=== PATIENT | female | born 1975 | race Caucasian/White ===

== ENCOUNTER 2021-07-17 05:38 | Outpatient (CLI) | payer OTHER ==
[~2021-07-17] VITALS: Ht 162.6 cm; Wt 95.9 kg
[~2021-07-17 05:38] MED LIST: ALPR-557 GT; ALPR0.5T72 PO; ATEN-158 PO; ATEN50TA PO; FERR325C PO; FOLI0.4T2 PO; HYDR-34 PO; HYDR118S10 PO; HYOS0.1216 PO; Ibuprofen PO; MELO-195 PO; NITR-65 PO; ONDA-42 SL; PNT40TEC PO; POTA2TAB15 PO; POTA99TA4 PO; PROM12.59 PO; PROM25SU10 PR; SCR1T PO; SMT80CT PO; SUCR1TAB23 PO; TRAM50TA2 PO; VITAMIN B 6 PO
== END 2021-07-21 15:18 | disposition home or self-care (01) ==
LOC: PREOP 05:38
PROVIDERS: ATTEND Surgery
DX: Z01.818 Encounter for other preprocedural examination (principal)

== ENCOUNTER 2021-07-24 08:03 | Day surgery (SDC) | payer BC, OTHER ==
[2021-07-24] VITALS (11 sets, daily range): BP systolic 97–204; BP diastolic 56–133
[~2021-07-24] VITALS: Ht 162.6 cm; Wt 95.9 kg
[2021-07-24] MEDS ORDERED: ceFAZolin 2 GM IV Premixed 50 ML IV ONE (08:45)
[2021-07-24] MEDS ORDERED: LABETALOL HCL 20 MG/4 ML VIAL IV ONE ×2 (08:45→09:00)
[2021-07-24] MEDS ORDERED: LACTATED RINGERS 1,000 ML IV PRN (08:45)
--- NOTE | 2021-07-24 09:06 | Progress Note-Pre Operative ---
Pre-Operative Progress Note H&P Reviewed The H&P was reviewed, patient examined and no changes noted. Date Seen by Provider: Jul 24, 2021 Time Seen by Provider: 09:05 Date H&P Reviewed: Jul 24, 2021 Time H&P Reviewed: 09:05 Pre-Operative Diagnosis: basal cell right shoulder EVARISTO HARTMAN DO Jul 24, 2021 09:06
[2021-07-24] MEDS ORDERED: LIDOCAINE/EPI 1%-1:100,000 (XYLOCAINE) 20ML ONE ×2 (09:33→10:15)
[2021-07-24] MEDS ORDERED: MIDAZOLAM 2 MG/2 ML (VERSED) VIAL ONE (10:19)
[2021-07-24] MEDS ORDERED: fentaNYL INJ 100 MCG/2 ML AMP ONE (10:19)
[2021-07-24] MEDS ORDERED: ONDANSETRON 4 MG/2 ML (SDV) Z0FRAN ONE (10:58)
[2021-07-24] MEDS ORDERED: SEVOFLURANE (ULTANE) 15 ML INHAL SOLN ONE (10:58)
[2021-07-24] MEDS ORDERED: LIDOCAINE PF 2% 5 ML (XYLOCAINE) VIAL ONE (10:58)
[2021-07-24] MEDS ORDERED: proPOfol 200 MG/20 ML (DIPRIVAN) VIAL IV ONE (10:58)
--- NOTE | 2021-07-24 11:12 | Anesthesia-General Post-Op ---
General Patient Condition Mental Status/LOC: Same as Preop Cardiovascular: Satisfactory Nausea/Vomiting: Absent Respiratory: Satisfactory Pain: Controlled Complications: Absent Post Op Complications Complications None Follow Up Care/Instructions Patient Instructions None needed. Anesthesia/Patient Condition Patient Condition Patient is doing well, no complaints, stable vital signs, no apparent adverse anesthesia problems. No complications reported per nursing. AMANDA JOHNSON CRNA Jul 24, 2021 11:12
[2021-07-24] MEDS ORDERED: fentaNYL INJ 100 MCG/2 ML AMP IVP ONE (11:15)
[2021-07-24] MEDS ORDERED: morphine INJ 10 MG/ML 1ML (SYR OR VIAL) IVP ONE (11:15)
[2021-07-24] MEDS ORDERED: ONDANSETRON 4 MG/2 ML (SDV) Z0FRAN IVP PRN (11:15)
[2021-07-24] MEDS ORDERED: MEPERIDINE (DEMEROL) INJ 50 MG/ML IVP ONE (11:15)
--- NOTE | 2021-07-24 11:36 | Discharge Inst-Simple/Standard ---
Discharge Inst-Standard Patient Instructions/Follow Up Plan of Care/Instructions/FU: 12-14 days Activity as Tolerated: No Discharge Diet: Regular Diet Other Inst to Patient Follow up Appt: Make appointment for 12-14 days. Instructions: No strenuous activity. May shower in 24 hours, no tub bath or soaking. Use incentive spirometer at home as directed. No Smoking Skin/Wound Care: You have special glue over your incision that will fall off on it's own. Symptoms to Report: Appetite Changes, Extremity Discoloration, Numbness/Tingling, Swelling Increased, Bleeding Excessive, Eyesight Changes, Pain Increased, Urine Color Change, Constipation(Persistent), Fever over 101 degree F, Pain/Pressure in ches t, Urinating Difficulty, Cough Up/Vomit Blood, Heart Beat Irreg/Pounding, Pain/Pressure in jaw, Vaginal Bleeding Increase, Cramps in feet or legs, Lightheadedness, Pain/Pressure in shoulder, Diarrhea(Persistent), Memory Changes Suddenly, Questions/Concerns, Weight gain consecutive days, Dizziness/Fainting, Nausea/Vomiting, Shortness of Breath, Weight gain over 2 pounds If questions or concerns contact your physician Or seek help at emergency department. EVARISTO HARTMAN DO Jul 24, 2021 11:36
[2021-07-24] MEDS ORDERED: HYDROcodone/APAP 5 MG/325 MG (LORTAB) TAB PO ONE (12:45)
--- NOTE | 2021-07-24 23:12 | OPERATIVE REPORT ---
DATE OF SERVICE: 07/24/2021 PREOPERATIVE DIAGNOSIS: Right shoulder basal cell carcinoma. POSTOPERATIVE DIAGNOSIS: Right shoulder basal cell carcinoma. PROCEDURE: Excisional right shoulder basal cell carcinoma, 3.3 x 7 cm. SURGEON: Evaristo Rasmussen DO ANESTHESIA: General. ESTIMATED BLOOD LOSS: Minimal. COMPLICATIONS: None. INDICATIONS: The patient is a 46-year-old female with a larger basal cell on the right shoulder. She understands risks and benefits of procedure and wished to proceed with procedure. Consent was signed in the chart. DESCRIPTION OF PROCEDURE: The patient was taken to the operating suite, prepped and draped in sterile fashion. Timeout was performed. Local anesthetic was infiltrated around the lesion. A 15-blade scalpel was used to make a skin incision in elliptical fashion around the lesion, which then cautery was used to remove the skin and subcutaneous tissue. The specimen was tagged and the skin was then closed using Prolene in a simple running fashion. The area was washed and dried and sterile bandages were applied. The patient tolerated procedure well without any complications. She was taken to recovery room in stable condition. CC: Dr. Vasquez House- requested, unable to deliver Job ID: [id number] DocumentID: [id number] Dictated Date: 07/24/2021 15:22:24 Shirrer Date: 07/24/2021 23:12:02 Dictated By: EVARISTO RASMUSSEN DO [facility]
== END 2021-07-24 13:30 | disposition home or self-care (01) ==
LOC: SDC 08:03
PROVIDERS: ATTEND Surgery
DX: C44.612 Basal cell carcinoma of skin of right upper limb, including shoulder (principal); I10 Essential (primary) hypertension; K21.9 Gastro-esophageal reflux disease without esophagitis; T46.4X6A Underdosing of angiotensin-converting-enzyme inhibitors, initial encounter; F17.210 Nicotine dependence, cigarettes, uncomplicated; E66.9 Obesity, unspecified; Z68.36 Body mass index [BMI] 36.0-36.9, adult
CPT/HCPCS: 87081; 88305